=== PATIENT | female | born 1945 | race Caucasian/White ===

== ENCOUNTER 2017-10-21 13:40 | Day surgery (SDC) | payer MEDICARE, BC ==
[~2017-10-21] VITALS: Ht 167.6 cm; Wt 77.1 kg
[~2017-10-21 13:40] MED LIST: ALPR1 PO; AMIT10; ASPI81EC PO; ATEN25; CHOL10002 PO; CYAN500 PO; Co Q-1010 MG PO; DHEA50 MG; ESCI10 PO; HYDACE5325; HYDCHL25 PO; LISI5 PO; MUSCLE RELAXER; Multiple Vitam1 EAC1 PO; PROP10; Prilosec Otc20 MG; ROSU10TA PO; TIZANIDINE HCL4 MG PO; [UNRECOGNIZED DRUG - MIXTURE] VAG; [UNRECOGNIZED DRUG - OTHER]
[2017-10-21] MEDS ORDERED: TYLECOD3 PO (14:24)
[2018-07-03] MEDS ORDERED: Aspirin EC81 MG (14:20)
[2018-07-03] MEDS ORDERED: FENO145 PO (14:21)
[2018-07-03] MEDS ORDERED: Omeprazole20 M1 PO (14:22)
[2018-07-03] MEDS ORDERED: TIZANIDINE HCL4 MG PO (14:22)
[2018-07-03] MEDS ORDERED: ESCI10 PO (14:23)
[2018-07-03] MEDS ORDERED: DHEA PO (14:24)
[2018-07-03] MEDS ORDERED: IBUP600 PO (14:25)
[2018-07-03] MEDS ORDERED: LIDO700A20 TOP (14:26)
[2018-07-03] MEDS ORDERED: ROSU10TA PO (14:28)
[2018-07-03] MEDS ORDERED: [UNRECOGNIZED DRUG - MIXTURE] VAG (14:32)
== END 2017-10-21 17:37 | disposition home or self-care (01) ==
LOC: ORSCSDS 13:40
PROVIDERS: Orthopaedic Surgery
PROC: 0MQ54ZZ Repair Right Wrist Bursa and Ligament, Percutaneous Endoscopic Approach (ICD-10-PCS; principal; 2017-10-21 14:45)
DX: S63.301A Traumatic rupture of unspecified ligament of right wrist, initial encounter (principal); I10 Essential (primary) hypertension; K21.9 Gastro-esophageal reflux disease without esophagitis; M79.7 Fibromyalgia; Z79.899 Other long term (current) drug therapy
CPT/HCPCS: J0171; J0690; J1100; J1885; J2250; J2405; J2795; J3010; J7120

== ENCOUNTER 2018-02-25 10:29 | Day surgery (SDC) | payer MEDICARE, BC ==
[~2018-02-25] VITALS: Ht 167.6 cm; Wt 79.9 kg
[~2018-02-25 10:29] MED LIST changes: +CHOL10002; -CHOL10002 PO; +CYAN1000; -CYAN500 PO; +Co Q-1010 MG; -Co Q-1010 MG PO; +Multiple Vitam1 EAC1; -Multiple Vitam1 EAC1 PO; +TYLECOD3
[2018-02-25] MEDS ORDERED: LIDOCAINE PAIN1 EACH (11:01)
== END 2018-02-25 11:52 | disposition home or self-care (01) ==
LOC: ORSCSDS 10:29
PROVIDERS: Anesthesiology
PROC: 3E0R33Z Introduction of Anti-inflammatory into Spinal Canal, Percutaneous Approach (ICD-10-PCS; principal; 2018-02-25 11:30)
DX: M51.16 Intervertebral disc disorders with radiculopathy, lumbar region (principal); M50.122 Cervical disc disorder at C5-C6 level with radiculopathy; I10 Essential (primary) hypertension; F41.8 Other specified anxiety disorders; E78.00 Pure hypercholesterolemia, unspecified; Z79.899 Other long term (current) drug therapy
CPT/HCPCS: J1040

== ENCOUNTER 2018-03-26 18:42 | Inpatient (IN) | payer MEDICARE, BC ==
[~2018-03-26] VITALS: Ht 167.6 cm; Wt 80.0 kg
[~2018-03-26 18:42] MED LIST changes: -CHOL10002; +CHOL10002 PO; -CYAN1000; +CYAN500 PO; -Co Q-1010 MG; +Co Q-1010 MG PO; +LIDOCAINE PAIN1 EACH; -Multiple Vitam1 EAC1; +Multiple Vitam1 EAC1 PO; -TYLECOD3; +TYLECOD3 PO
[2018-03-26 19:42] LABS: BASOPHILS ABSOLUTE AUTO 0.03 K/mm3 (0.00-0.23); BASOPHILS PERCENT AUTO 0 % (0-2); EOSINOPHILS ABSOLUTE AUTO 0.08 K/mm3 (0.00-0.68); EOSINOPHILS PERCENT AUTO 1 % (0-6); Hematocrit 37.7 % (33.0-51.0); IMMATURE GRAN ABSOLUTE AUTO 0.05 K/mm3 (0.00-0.10); IMMATURE GRAN PERCENT AUTO 0 % (0-1); LYMPHOCYTES ABSOLUTE AUTO 1.63 K/mm3 (0.84-5.20); LYMPHOCYTES PERCENT AUTO 11 % (21-46); MONOCYTES ABSOLUTE AUTO 0.77 K/mm3 (0.16-1.47); MONOCYTES PERCENT AUTO 5 % (4-13); Mean Corpuscular HGB 31.3 pg (26.0-34.0); Mean Corpuscular HGB Conc 34.5 g/dL (31.5-36.5); Mean Corpuscular Volume 91 fL (80-100); NEUTROPHILS ABSOLUTE AUTO 11.89 K/mm3 (1.96-9.15); NEUTROPHILS PERCENT AUTO 82 % (41-73); Platelet Count 300 K/mm3 (150-400); RDW Coefficient Variation 12.5 % (11.7-14.2); RDW Standard Deviation 41.6 fL (35.1-46.3); Red Blood Cell Count 4.15 M/mm3 (3.80-5.20); White Blood Cell Count 14.45 K/mm3 (4.00-11.30)
[2018-03-26 19:56] LABS: Alanine Aminotransfer (ALT/SGP 30 U/L (12-78); Alk Phos 56 U/L (50-136); Anion Gap 12 mmol/L (6-16); Aspartate Aminotrans (AST/SGOT 22 U/L (12-37); Bilirubin, Total 0.3 mg/dL (0.1-1.0); Blood Urea Nitrogen 19 mg/dL (8-24); CO2, Blood 23 mmol/L (21-32); Calcium, Blood 9.8 mg/dL (8.5-10.1); Chloride, Blood 96 mmol/L (98-108); Glomerular Filtration Rate >60 (60-); Glucose, Blood 143 mg/dL (70-99); Potassium, Blood 3.1 mmol/L (3.5-5.5); Sodium, Blood 131 mmol/L (136-145)
[2018-03-27] MEDS ORDERED: ASPI81CH PO (01:26)
[2018-03-28 04:25] LABS: BASOPHILS ABSOLUTE AUTO 0.04 K/mm3 (0.00-0.23); BASOPHILS PERCENT AUTO 0 % (0-2); EOSINOPHILS ABSOLUTE AUTO 0.12 K/mm3 (0.00-0.68); EOSINOPHILS PERCENT AUTO 1 % (0-6); Hemoglobin 10.7 g/dL (11.5-16.0); IMMATURE GRAN ABSOLUTE AUTO 0.04 K/mm3 (0.00-0.10); IMMATURE GRAN PERCENT AUTO 0 % (0-1); LYMPHOCYTES ABSOLUTE AUTO 2.05 K/mm3 (0.84-5.20); LYMPHOCYTES PERCENT AUTO 15 % (21-46); MONOCYTES ABSOLUTE AUTO 1.11 K/mm3 (0.16-1.47); MONOCYTES PERCENT AUTO 8 % (4-13); Mean Corpuscular HGB 31.3 pg (26.0-34.0); Mean Corpuscular HGB Conc 34.5 g/dL (31.5-36.5); Mean Corpuscular Volume 91 fL (80-100); Mean Platelet Volume 9.1 fL (9.1-12.4); NEUTROPHILS ABSOLUTE AUTO 9.99 K/mm3 (1.96-9.15); NEUTROPHILS PERCENT AUTO 75 % (41-73); Platelet Count 219 K/mm3 (150-400); RDW Standard Deviation 42.3 fL (35.1-46.3); Red Blood Cell Count 3.42 M/mm3 (3.80-5.20); White Blood Cell Count 13.35 K/mm3 (4.00-11.30)
[2018-03-28 04:44] LABS: Bun/Creatinine Ratio 11.9 (12.0-20.0); Calcium, Blood 8.2 mg/dL (8.5-10.1); Creatinine, Blood 1.09 mg/dL (0.40-1.00); Potassium, Blood 3.2 mmol/L (3.5-5.5)
[2018-03-29 05:20] LABS: BASOPHILS ABSOLUTE AUTO 0.05 K/mm3 (0.00-0.23); BASOPHILS PERCENT AUTO 1 % (0-2); EOSINOPHILS ABSOLUTE AUTO 0.28 K/mm3 (0.00-0.68); EOSINOPHILS PERCENT AUTO 3 % (0-6); Hematocrit 30.8 % (33.0-51.0); Hemoglobin 10.3 g/dL (11.5-16.0); IMMATURE GRAN ABSOLUTE AUTO 0.09 K/mm3 (0.00-0.10); IMMATURE GRAN PERCENT AUTO 1 % (0-1); LYMPHOCYTES ABSOLUTE AUTO 2.13 K/mm3 (0.84-5.20); LYMPHOCYTES PERCENT AUTO 19 % (21-46); MONOCYTES ABSOLUTE AUTO 0.86 K/mm3 (0.16-1.47); MONOCYTES PERCENT AUTO 8 % (4-13); Mean Corpuscular HGB Conc 33.4 g/dL (31.5-36.5); Mean Corpuscular Volume 93 fL (80-100); Mean Platelet Volume 9.6 fL (9.1-12.4); NEUTROPHILS ABSOLUTE AUTO 7.62 K/mm3 (1.96-9.15); NEUTROPHILS PERCENT AUTO 69 % (41-73); Platelet Count 233 K/mm3 (150-400); RDW Coefficient Variation 13.2 % (11.7-14.2); RDW Standard Deviation 45.1 fL (35.1-46.3); Red Blood Cell Count 3.32 M/mm3 (3.80-5.20); White Blood Cell Count 11.03 K/mm3 (4.00-11.30)
[2018-03-29 05:51] LABS: Magnesium, Blood 1.9 mg/dL (1.6-2.4)
[2018-03-29 05:53] LABS: Anion Gap 9 mmol/L (6-16); Blood Urea Nitrogen 23 mg/dL (8-24); Bun/Creatinine Ratio 23.8 (12.0-20.0); CO2, Blood 26 mmol/L (21-32); Calcium, Blood 8.5 mg/dL (8.5-10.1); Chloride, Blood 102 mmol/L (98-108); Creatinine, Blood 0.97 mg/dL (0.40-1.00); Glomerular Filtration Rate >60 (60-); Glucose, Blood 101 mg/dL (70-99); Potassium, Blood 3.4 mmol/L (3.5-5.5); Sodium, Blood 137 mmol/L (136-145)
[2018-03-29] MEDS ORDERED: POTCHL10ER PO (09:28)
[2018-03-29] MEDS ORDERED: CIPR500 PO (09:29)
[2018-03-29] MEDS ORDERED: METR500 PO (09:29)
== END 2018-03-29 13:07 | disposition home or self-care (01) | DRG 872 ==
LOC: ER 18:42 → MEDS 18:43 → ER 18:43 → MEDS 18:43 → ENPENDDIS 03-29 10:00 → MEDS 03-29 13:07
PROVIDERS: Emergency Medicine; Hospitalist
DX: A41.9 Sepsis, unspecified organism (principal); K62.5 Hemorrhage of anus and rectum; K52.9 Noninfective gastroenteritis and colitis, unspecified; K64.9 Unspecified hemorrhoids; I10 Essential (primary) hypertension; K59.09 Other constipation; E87.6 Hypokalemia; E78.5 Hyperlipidemia, unspecified; M54.9 Dorsalgia, unspecified; K21.9 Gastro-esophageal reflux disease without esophagitis; M79.7 Fibromyalgia; M50.30 Other cervical disc degeneration, unspecified cervical region; G89.29 Other chronic pain; Z88.2 Allergy status to sulfonamides; Z88.8 Allergy status to other drugs, medicaments and biological substances; Z87.891 Personal history of nicotine dependence; Z79.82 Long term (current) use of aspirin; Z79.891 Long term (current) use of opiate analgesic; Z79.899 Other long term (current) drug therapy
CPT/HCPCS: 36415; 36416; 74177; 80048; 80053; 82272; 83605; 83735; 85025; 86850; 86900; 86901; 87040; 93005; 93010; 96374; 96375; 99285-25; J0360; J0744; J2405; J3010; J7030; Q9967

== ENCOUNTER → 2020-12-21 | Outpatient (CLI) | payer MEDICARE, BC ==
[~2020-12-21] MED LIST changes: +ASPI81CH PO; +Aspirin EC81 MG; +CIPR500 PO; +DHEA PO; +FENO145 PO; +IBUP600 PO; +LIDO700A20 TOP; +METR500 PO; +Omeprazole20 M1 PO; +POTCHL10ER PO
[2020-12-21 16:41] LABS: Alanine Aminotransfer (ALT/SGP 27 U/L (12-78); Albumin, Blood 3.7 g/dL (3.4-5.0); Albumin/Globulin Ratio 1.2 (0.8-1.8); Alk Phos 45 U/L (50-136); Anion Gap 5 mmol/L (6-16); Aspartate Aminotrans (AST/SGOT 15 U/L (12-37); Bilirubin, Total 0.3 mg/dL (0.1-1.0); Blood Urea Nitrogen 23 mg/dL (8-24); Bun/Creatinine Ratio 25.3 (12.0-20.0); CHOL/HDL RATIO 2.5; CO2, Blood 28 mmol/L (21-32); Calcium, Blood 9.5 mg/dL (8.5-10.1); Chloride, Blood 107 mmol/L (98-108); Cholesterol 144 mg/dL (50-200); Creatinine, Blood 0.91 mg/dL (0.40-1.00); Globulin, Blood 3.1 g/dL (2.2-4.0); Glomerular Filtration Rate >60 (60-); Glucose, Blood 91 mg/dL (70-99); HDL Cholesterol 58 mg/dL (>39); Low Density Lipoprotein Chol 60 mg/dL (0-110); Potassium, Blood 4.1 mmol/L (3.5-5.5); Sodium, Blood 140 mmol/L (136-145); Total Protein, Blood 6.8 g/dL (6.4-8.2); Triglycerides 128 mg/dL (30-160); Very Low Density Lipoprot Chol 25 mg/dL (6-32)
== END ==
LOC: LAB SHORT 13:54 → LAB 13:54
PROVIDERS: Hospitalist
DX: E78.5 Hyperlipidemia, unspecified (principal); I10 Essential (primary) hypertension
CPT/HCPCS: 80053; 80061

== ENCOUNTER → 2021-03-29 | Outpatient (CLI) | payer MEDICARE, BC ==
[2021-03-29 15:24] LABS: BASOPHILS ABSOLUTE AUTO 0.07 K/mm3 (0.00-0.23); BASOPHILS PERCENT AUTO 1 % (0-2); EOSINOPHILS PERCENT AUTO 3 % (0-6); Hemoglobin 12.5 g/dL (11.5-16.0); IMMATURE GRAN ABSOLUTE AUTO 0.04 K/mm3 (0.00-0.10); IMMATURE GRAN PERCENT AUTO 1 % (0-1); LYMPHOCYTES ABSOLUTE AUTO 2.62 K/mm3 (0.84-5.20); LYMPHOCYTES PERCENT AUTO 33 % (21-46); MONOCYTES ABSOLUTE AUTO 0.78 K/mm3 (0.16-1.47); MONOCYTES PERCENT AUTO 10 % (4-13); Mean Corpuscular HGB 30.8 pg (26.0-34.0); Mean Corpuscular HGB Conc 32.9 g/dL (31.5-36.5); Mean Corpuscular Volume 94 fL (80-100); Mean Platelet Volume 10.1 fL (9.1-12.4); NEUTROPHILS ABSOLUTE AUTO 4.32 K/mm3 (1.96-9.15); NEUTROPHILS PERCENT AUTO 54 % (41-73); Platelet Count 370 K/mm3 (150-400); RDW Coefficient Variation 12.7 % (11.7-14.2); RDW Standard Deviation 43.8 fL (35.1-46.3); Red Blood Cell Count 4.06 M/mm3 (3.80-5.20); White Blood Cell Count 8.03 K/mm3 (4.00-11.30)
[2021-03-29 15:56] LABS: Anion Gap 6 mmol/L (6-16); Blood Urea Nitrogen 27 mg/dL (8-24); Bun/Creatinine Ratio 32.3 (12.0-20.0); CO2, Blood 28 mmol/L (21-32); Calcium, Blood 10.1 mg/dL (8.5-10.1); Chloride, Blood 103 mmol/L (98-108); Creatinine, Blood 0.84 mg/dL (0.40-1.00); Glomerular Filtration Rate >60 (60-); Glucose, Blood 104 mg/dL (70-99); Potassium, Blood 3.9 mmol/L (3.5-5.5); Sodium, Blood 137 mmol/L (136-145)
== END | disposition home or self-care (01) ==
LOC: LAB SHORT 09:00 → LAB 09:00
PROVIDERS: Hospitalist
DX: R42 Dizziness and giddiness (principal)
CPT/HCPCS: 80048; 85025

== ENCOUNTER 2022-12-04 12:23 | Day surgery (SDC) | payer MEDICARE, BC ==
[2022-12-04] VITALS (16 sets, daily range): BP systolic 104–154; BP diastolic 50–108
[~2022-12-04] VITALS: Ht 165.1 cm; Wt 79.3 kg
[~2022-12-04 12:23] MED LIST changes: -CHOL10002 PO; -DHEA PO; +DHEA VAG; +TIZA4 PO; +VITAMIN D310 MC4 PO; +[UNRECOGNIZED DRUG - CODE] PO
--- NOTE | 2022-12-04 20:07 | NUR ---
SHIFT SUMMARY PT ARRIVED TO THE ROOM FROM PACU AT APPROXIMATELY 1725. PT ALERT AND ORIENTED AT TIME OF ARRIVAL. PT ABLE TO MOVE HER FEET BUT HAS DECREASED SENSATION. NO SIGNIFICANT CHANGES SINCE PT ARRIVED TO THE ROOM. PT DENIES PAIN. PT TOLERATING PO. VSS. FAMILY AT BEDSIDE FOR SUPPORT. REPORT GIVEN TO JUNITO RIVAS.
[2022-12-05 00:23] VITALS: BP 114/51
[2022-12-05 02:28] VITALS: BP 119/52
--- NOTE | 2022-12-05 05:16 | NUR ---
SHIFT SUMMARY: PODx1 R TOTAL KNEE. GAUZE AND REYNALDO WRAP HAVE REMAINED C/D/I ON RIGHT KNEE. POLAR PACK HAS REMAINED IN PLACE T/O THE NIGHT. PAIN WELL MANAGED WITH PO MEDICATION PER EMAR ORDERS. PT ABLE TO AMBULATE TO THE BR, VOIDING, AND TOLERATING PO FLUIDS AND FOOD. A&OX4. PLESEANT. PLANS TO WORK WITH PHYSICAL THERAPY TODAY. WILL GIVE REPORT TO DAY TIME RN.
[2022-12-05 05:55] LABS: BASOPHILS ABSOLUTE AUTO 0.02 K/mm3 (0.00-0.23); BASOPHILS PERCENT AUTO 0 % (0-2); EOSINOPHILS ABSOLUTE AUTO 0.01 K/mm3 (0.00-0.68); EOSINOPHILS PERCENT AUTO 0 % (0-6); Hematocrit 34.3 % (33.0-51.0); Hemoglobin 11.4 g/dL (11.5-16.0); IMMATURE GRAN ABSOLUTE AUTO 0.07 K/mm3 (0.00-0.10); IMMATURE GRAN PERCENT AUTO 1 % (0-1); LYMPHOCYTES PERCENT AUTO 14 % (21-46); MONOCYTES PERCENT AUTO 6 % (4-13); Mean Corpuscular HGB 30.4 pg (26.0-34.0); Mean Corpuscular HGB Conc 33.2 g/dL (31.5-36.5); Mean Corpuscular Volume 92 fL (80-100); Mean Platelet Volume 9.4 fL (9.1-12.4); NEUTROPHILS ABSOLUTE AUTO 11.94 K/mm3 (1.96-9.15); NEUTROPHILS PERCENT AUTO 79 % (41-73); Platelet Count 327 K/mm3 (150-400); RDW Coefficient Variation 13.1 % (11.7-14.2); RDW Standard Deviation 43.6 fL (35.1-46.3); Red Blood Cell Count 3.75 M/mm3 (3.80-5.20); White Blood Cell Count 15.04 K/mm3 (4.00-11.30)
[2022-12-05 06:21] LABS: Calcium, Blood 9.4 mg/dL (8.5-10.1); Creatinine, Blood 0.69 mg/dL (0.40-1.00); Magnesium, Blood 1.7 mg/dL (1.6-2.4); Potassium, Blood 3.7 mmol/L (3.5-5.5)
[2022-12-05 07:05] VITALS: BP 118/50
[2022-12-05 11:14] VITALS: BP 136/63
[2022-12-05] MEDS ORDERED: OXAYDO5 M3 PO (11:47)
[2022-12-05] MEDS ORDERED: Aspir 8181 MG PO (11:47)
[2022-12-05] MEDS ORDERED: PHENERGAN25 MG PO (11:48)
--- NOTE | 2022-12-05 12:12 | NUR ---
DISCHARGE PT DISCHARGED HOME AT APPROXIMATELY 12:05. PT WAS A&OX4 AND VSS AT TIME OF DISCHARGE. PT WAS PROVIDED WITH WRITTEN AND VERBAL INSTRUCTIONS ON NEW STRIDES, FALL PREVENTION, HAND WASHING, OXYCODONE, AND INCISION CARE. PT AND REPORTED UNDERSTANDING. PT WAS PROVIDED WITH AQUACEL DRESSINGS AND PRESCRIPTIONS FROM THE DOCTOR. PT'S PAIN WAS MANAGED, VOIDED APPROPRIATELY, AND TOLERTED PO INTAKE. PT'S BELONGINGS WERE RETURNED AND WAS ESCOURTED OUT.
== END 2022-12-05 12:02 | disposition home or self-care (01) ==
LOC: ORSCMMR 12:23 → ORD 17:15 → SURS 17:17 → ORSCMMR 12-05 12:02 → ORD 01-01 07:30
PROVIDERS: Orthopaedic Surgery
PROC: 0SRC0J9 Replacement of Right Knee Joint with Synthetic Substitute, Cemented, Open Approach (ICD-10-PCS; principal; 2022-12-04 17:15)
DX: M17.0 Bilateral primary osteoarthritis of knee (principal); I10 Essential (primary) hypertension; E78.5 Hyperlipidemia, unspecified; M79.7 Fibromyalgia; Z87.891 Personal history of nicotine dependence; Z79.899 Other long term (current) drug therapy
CPT/HCPCS: 36415; 73560-RT; 80048; 83735; 85025; 97110; 97116; 97161; 97530; A9270; C1713; C1776; J0171; J0690; J0735; J1100; J1885; J2250; J2370; J2405; J2704; J2795; J3010; J7120

== ENCOUNTER → 2023-04-29 | Outpatient (CLI) | payer MEDICARE, BC ==
[~2023-04-29] MED LIST changes: +Aspir 8181 MG PO; +OXAYDO5 M3 PO; +PHENERGAN25 MG PO
[2023-04-29 17:52] LABS: BASOPHILS ABSOLUTE AUTO 0.06 K/mm3 (0.00-0.23); BASOPHILS PERCENT AUTO 1 % (0-2); EOSINOPHILS ABSOLUTE AUTO 0.24 K/mm3 (0.00-0.68); EOSINOPHILS PERCENT AUTO 3 % (0-6); Hematocrit 37.7 % (33.0-51.0); Hemoglobin 12.8 g/dL (11.5-16.0); IMMATURE GRAN ABSOLUTE AUTO 0.03 K/mm3 (0.00-0.10); IMMATURE GRAN PERCENT AUTO 0 % (0-1); LYMPHOCYTES ABSOLUTE AUTO 2.89 K/mm3 (0.84-5.20); LYMPHOCYTES PERCENT AUTO 38 % (21-46); MONOCYTES ABSOLUTE AUTO 0.42 K/mm3 (0.16-1.47); MONOCYTES PERCENT AUTO 6 % (4-13); Mean Corpuscular HGB 30.3 pg (26.0-34.0); Mean Corpuscular Volume 89 fL (80-100); Mean Platelet Volume 9.8 fL (9.1-12.4); NEUTROPHILS ABSOLUTE AUTO 4.06 K/mm3 (1.96-9.15); NEUTROPHILS PERCENT AUTO 53 % (41-73); Platelet Count 358 K/mm3 (150-400); RDW Standard Deviation 45.2 fL (35.1-46.3); Red Blood Cell Count 4.23 M/mm3 (3.80-5.20)
[2023-04-29 18:41] LABS: Albumin, Blood 4.1 g/dL (3.4-5.0); Albumin/Globulin Ratio 1.2 (0.8-1.8); Bilirubin, Total 0.4 mg/dL (0.1-1.0); Bun/Creatinine Ratio 29.6 (12.0-20.0); Calcium, Blood 9.8 mg/dL (8.5-10.1); Creatinine, Blood 0.68 mg/dL (0.40-1.00); Globulin, Blood 3.4 g/dL (2.2-4.0); Potassium, Blood 3.2 mmol/L (3.5-5.5); Thyroid Stimulating Hormone 3.25 uIU/mL (0.360-4.800); Total Protein, Blood 7.5 g/dL (6.4-8.2)
== END | disposition home or self-care (01) ==
LOC: LAB 17:18 → LAB SHORT 17:18
PROVIDERS: Hospitalist
DX: R53.83 Other fatigue (principal); R73.9 Hyperglycemia, unspecified
CPT/HCPCS: 80053; 83036; 83735; 84443; 85025

== ENCOUNTER → 2025-04-11 | Outpatient (CLI) | payer MEDICARE, BC ==
[2025-04-11 15:27] LABS: Anion Gap 10 mmol/L (3-11); Blood Urea Nitrogen 29 mg/dL (8-24); CHOL/HDL RATIO 3.6; CO2, Blood 27 mmol/L (21-32); Calcium, Blood 10.5 mg/dL (8.5-10.1); Chloride, Blood 103 mmol/L (98-108); Cholesterol 167 mg/dL (50-200); Creatinine, Blood 0.65 mg/dL (0.40-1.00); Glucose, Blood 98 mg/dL (70-99); HDL Cholesterol 47 mg/dL (>39); LDL/HDL RATIO 1.6; Low Density Lipoprotein Chol 75 mg/dL (0-110); Potassium, Blood 4.0 mmol/L (3.5-5.5); Sodium, Blood 136 mmol/L (136-145); Triglycerides 224 mg/dL (30-160); Very Low Density Lipoprot Chol 44 mg/dL (6-32)
== END | disposition home or self-care (01) ==
LOC: LAB SHORT 10:20 → LAB 10:20
PROVIDERS: Hospitalist
DX: E78.5 Hyperlipidemia, unspecified (principal); I10 Essential (primary) hypertension
CPT/HCPCS: 80048; 80061